=== PATIENT | male | born 1980 | race Caucasian/White ===

== ENCOUNTER 2019-05-03 11:07 | Inpatient (IN) | payer OTHER ==
[2019-05-03 16:16] VITALS: BMI 26.6
--- NOTE | 2019-05-03 18:57 | HP ---
COWS - Scale Resting Pulse: 0= [place] 80 or Below Sweatin= Chills/Flushing Restless Observation: 1= Difficult to Sit Still Pupil Size: 1= Pupils >than Normal Bone or Joint Aches: 2= Severe Diffuse Aches Runny Nose/ Eye Tearin= Runny Nose/Eyes GI Upset > 30mins: 2= Nausea/Diarrhea Tremor Observation: 2= Slight Tremor Visible Yawning Observation: 2= >3x During Session Anxiety or Irritability: 2=Irritable/Anxious Goose Flesh Skin: 0=Smooth Skin COWS Score: 15 CIWA Score - Admission Criteria OASAS Guidelines: Admission for Medically Managed Detox: Requires at least one of the followin. CIWA greater than 12 2. Seizures within the past 24 hours 3. Delirium tremens within the past 24 hours 4. Hallucinations within the past 24 hours 5. Acute intervention needed for co occurring medical disorder 6. Acute intervention needed for co occurring psychiatric disorder 7. Severe withdrawal that cannot be handled at a lower level of care (continued vomiting, continued diarrhea, abnormal vital signs) requiring intravenous medication and/or fluids 8. Admission ROS [facility] - HPI Chief Complaint: i need help to stop using heroin and cocaine Allergies/Adverse Reactions: Allergies Allergy/AdvReac Type Severity Reaction Status Date / Time No Known Allergies Allergy Verified 05/03/19 16:13 History of Present Illness: this 39 years old male with heroin,cocaine dependence,seeking detox,withdrawal symptom, never been in detox before low back pain chronic nicotine dependence 2 cigarette/day weight loss anxiety,depression,insomnia Exam Limitations: No Limitations - Ebola screening Have you traveled outside of the country in the last 21 days: No (N) Have you had contact with anyone from an Ebola affected area: No Do you have a fever: No - Review of Systems Constitutional: Chills, Loss of Appetite, Malaise, Night Sweats, Changes in sleep, Unintentional Wgt. Loss EENT: reports: Tearing, Nose Congestion Respiratory: reports: No Symptoms reported Cardiac: reports: No Symptoms Reported GI: reports: Diarrhea, Nausea, Poor Appetite, Vomiting : reports: No Symptoms Reported Integumentary: reports: Dryness Neuro: reports: Headache, Tremors Endocrine: reports: No Symptoms Reported Hematology: reports: No Symptoms Reported Psychiatric: reports: No Sypmtoms Reported, Judgement Intact, Mood/Affect Appropiate, Orientated x3, Anxious, Depressed, other (insomnia) Other Systems: Reviewed and Negative Patient History - Patient Medical History Hx Anemia: No Hx Asthma: No Hx Chronic Obstructive Pulmonary Disease (COPD): No Hx Cancer: No Hx Cardiac Disorders: No Hx Congestive Heart Failure: No Hx Hypertension: No Hx Hypercholesterolemia: No Hx Pacemaker: No HX Cerebrovascular Accident: No Hx Seizures: No Hx Dementia: No Hx Diabetes: No Hx Gastrointestinal Disorders: No Hx Liver Disease: No Hx Genitourinary Disorders: No Hx Sexually Transmitted Disorders: No Hx Renal Disease (ESRD): No Hx Thyroid Disease: No Hx Human Immunodeficiency Virus (HIV): No (last 2017 negative) Hx Hepatitis C: No Hx Depression: Yes (anxiety,insomnia) Hx Suicide Attempt: No Hx Bipolar Disorder: No Hx Schizophrenia: No Other Medical History: no suicidal,no homicidal, - Patient Surgical History Past Surgical History: No - PPD History Previous Implant?: Yes Documented Results: Negative w/o proof Implanted On Prior [facility] Admission?: No PPD to be Administered?: No - Smoking Cessation Smoking history: Current every day smoker Have you smoked in the past 12 months: Yes Aproximately how many cigarettes per day: 3 Cigars Per Day: 0 Hx Chewing Tobacco Use: No Initiated information on smoking cessation: Yes 'Breaking Loose' booklet given: 05/03/19 - Substance & Tx. History Hx Alcohol Use: No Hx Substance Use: Yes Substance Use Type: Cocaine, Heroin Hx Substance Use Treatment: No - Substances abused Heroin Substance route: Inhalation Frequency: Daily Amount used: 3 bags Age of first use: 25 Date of last use: 05/01/19 Cocaine Substance route: Injection Frequency: 3-6 times per week Amount used: 20$ Age of first use: 10 Date of last use: 05/01/19 Family Disease History - Family Disease History Family History: Denies Admission Physical Exam BHS - Vital Signs Vital Signs: Vital Signs - 24 hr 05/03/19 16:11 Temperature 99 F Pulse Rate 50 L Respiratory 18 Rate Blood Pressure 110/70 - Physical General Appearance: Yes: Moderate Distress, Tremorous, Irritable, Sweating, Anxious HEENTM: Yes: Normal ENT Inspection, LOS, Pharynx Normal Respiratory: Yes: Lungs Clear, Normal Breath Sounds, No Respiratory Distress Neck: Yes: Within Normal Limits, Supple, Trachea in good position Breast: Yes: Within Normal Limits Cardiology: Yes: Within Normal Limits, Regular Rhythm, Regular Rate, S1, S2 Abdominal: Yes: Within Normal Limits, Normal Bowel Sounds, Non Tender, Flat Genitourinary: Yes: Within Normal Limits Back: Yes: Muscle Spasm Musculoskeletal: Yes: Back pain, Muscle Pain Extremities: Yes: Tremors 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: 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: 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 intact, Fully Oriented, Alert, Motor Strength 5/5 Integumentary: Yes: Dry Lymphatic: Yes: Within Normal Limits - Diagnostic (1) Opioid dependence with withdrawal Current Visit: Yes Status: Acute (2) Cocaine dependence Current Visit: Yes Status: Acute (3) Nicotine dependence Current Visit: Yes Status: Acute (4) Chronic low back pain Current Visit: Yes Status: Acute (5) IVDU (intravenous drug user) Current Visit: Yes Status: Acute Cleared for Admission [facility] - Detox or Rehab [facility] Level of Care: Medically Managed Detox Regimen/Protocol: Methadone Breathalyzer - Breathalyzer Breathalyzer: 0 Urine Drug Screen - Test Device Lot number: [id number] Expiration date: 01/28/21 - Control Is test valid?: Yes - Results Drug screen NEGATIVE: No Urine drug screen results: MANUEL-Cocaine, MOP-Opiates Inpatient Rehab Admission - Rehab Decision to Admit Inpatient rehab admission?: No
[2019-05-03] MEDS ORDERED: ACETAMINOPHEN 325 MG TABLET (FP) PO PRN ×2 (19:05)
[2019-05-03] MEDS ORDERED: MAG HYDROX/AL HYDROX/SIMETH 30 ML UNIT-DOSE CUP PO PRN (19:05)
[2019-05-03] MEDS ORDERED: MAGNESIUM HYDROX 2400MG/30ML ORAL SUSPENSION 30 ML CUP PO PRN (19:05)
[2019-05-03] MEDS ORDERED: BISMUTH SUBSALICYLATE 524 MG/30 ML UD PO PRN (19:05)
[2019-05-03] MEDS ORDERED: IBUPROFEN 400 MG TABLET (FP) PO PRN (19:05)
[2019-05-03] MEDS ORDERED: MENTHOL/PHENOL 1 EACH UD MM PRN (19:05)
[2019-05-03] MEDS ORDERED: MELATONIN 5 MG TABLETS PO PRN (19:05)
[2019-05-03] MEDS ORDERED: METHOCARBAMOL 500 MG TABLET PO PRN (19:05)
[2019-05-03] MEDS ORDERED: cloNIDine HCL 0.1 MG TABLET PO PRN (19:05)
[2019-05-03] MEDS ORDERED: MAGNESIUM CITRATE 300 ML BOTTLE PO PRN (19:05)
[2019-05-03] MEDS ORDERED: METHADONE HCL 10 MG TABLET (FOR DETOX USE ONLY) PO ONE (19:05)
[2019-05-03] MEDS ORDERED: hydrOXYzine PAMOATE 25 MG CAPSULE (FP) PO PRN (19:05)
[2019-05-03] MEDS: diazePAM 5 MG TABLET PO PRN (20:01)
[2019-05-03] MEDS: THIAMINE HCL 100 MG TABLET (FP) PO SCH (22:31)
--- NOTE | 2019-05-04 09:17 | EKG ---
Test Reason : Blood Pressure : / mmHG Vent. Rate : 047 BPM Atrial Rate : 047 BPM P-R Int : 164 ms QRS Dur : 088 ms QT Int : 476 ms P-R-T Axes : 044 061 020 degrees QTc Int : 421 ms SINUS BRADYCARDIA OTHERWISE NORMAL ECG NO PREVIOUS ECGS AVAILABLE Confirmed by KARISSA NUÑEZ MD ([id number]) on 05/04/2019 9:17:14 AM Referred By: JOSE BAEZ Confirmed By:KARISSA NUÑEZ MD
[2019-05-04] MEDS ORDERED: METHADONE HCL 5 MG TABLET (FOR DETOX USE ONLY) PO ONE (10:00)
[2019-05-04] MEDS: PRENATAL VITAMINS W/ FOLIC ACID TABLET (FP) PO SCH (10:44)
[2019-05-04 11:36] LABS: HEMATOCRIT 36.4 % (35.4-49); HEMOGLOBIN 11.8 GM/dL (11.7-16.9); MCH 26.1 pg (25.7-33.7); MCHC 32.3 g/dl (32.0-35.9); MEAN CELL VOLUME 80.9 fl (80-96); MEAN PLT VOLUME 8.9 fl (7.5-11.1); PLATELET COUNT 392 K/MM3 (134-434); RDW 14.5 % (11.9-15.9)
[2019-05-04 11:45] LABS: ALBUMIN 3.4 g/dl (3.4-5.0); BILIRUBIN,TOTAL 0.6 mg/dL (0.2-1); CALCIUM 8.7 mg/dL (8.5-10.1); POTASSIUM 4.4 mmol/L (3.5-5.1); TOT PROT 6.7 g/dl (6.4-8.2)
--- NOTE | 2019-05-04 15:12 | CONSULT ---
[facility] Psychiatric Consult - Data Date of interview: 05/04/19 Admission source: [facility] Identifying data: Patient refused psychiatric consultation. Stated he did not ask to see psychiatry. Patient politely refused psychiatric consultation.
--- NOTE | 2019-05-04 15:56 | PN ---
[facility] COWS - Scale Resting Pulse: 0= [place] 80 or Below Sweatin= Chills/Flushing Restless Observation: 3= Extraneous Movement Pupil Size: 0= Normal to Room Light Bone or Joint Aches: 2= Severe Diffuse Aches Runny Nose/ Eye Tearin= Runny Nose/Eyes GI Upset > 30mins: 2= Nausea/Diarrhea Tremor Observation of Outstretched Hands: 2= Slight Tremor Visible Yawning Observation: 0= None Anxiety or Irritability: 2=Irritable/Anxious Goose Flesh Skin: 0=Smooth Skin COWS Score: 14 BHS Progress Note (SOAP) Subjective: Feeling tired, sweating, headache (7/10), interrupted sleep Objective: 05/04/19 15:54 Last Vital Signs Temp Pulse Resp BP Pulse Ox 99.1 F 72 18 125/82 05/04/19 13:36 05/04/19 13:36 05/04/19 13:36 05/04/19 13:36 Laboratory Tests 05/04/19 05/04/19 05/04/19 08:00 08:00 08:00 WBC 5.0 RBC 4.50 Hgb 11.8 Hct 36.4 MCV 80.9 MCH 26.1 MCHC 32.3 RDW 14.5 Plt Count 392 MPV 8.9 Sodium 142 Potassium 4.4 Chloride 105 Carbon Dioxide 30 Anion Gap 7 L BUN 9.0 Creatinine 1.0 Est GFR (CKD-EPI)AfAm 107.87 Est GFR (CKD-EPI)NonAf 93.07 Random Glucose 55 L Calcium 8.7 Total Bilirubin 0.6 AST 40 H ALT 53 Alkaline Phosphatase 81 Total Protein 6.7 Albumin 3.4 RPR Titer Nonreactive HIV 1&2 Antibody Screen HIV P24 Antigen 05/04/19 08:00 WBC RBC Hgb Hct MCV MCH MCHC RDW Plt Count MPV Sodium Potassium Chloride Carbon Dioxide Anion Gap BUN Creatinine Est GFR (CKD-EPI)AfAm Est GFR (CKD-EPI)NonAf Random Glucose Calcium Total Bilirubin AST ALT Alkaline Phosphatase Total Protein Albumin RPR Titer HIV 1&2 Antibody Screen Cancelled HIV P24 Antigen Cancelled Labs reviewed Assessment: 05/04/19 15:55 Withdrawal symptoms Plan: Continue detox Encouraged PO water intake
[2019-05-04] MEDS: THIAMINE HCL 100 MG TABLET (FP) PO SCH (22:36)
[2019-05-04] MEDS: diazePAM 5 MG TABLET PO PRN (22:37)
[2019-05-05] MEDS ORDERED: METHADONE HCL 10 MG TABLET (FOR DETOX USE ONLY) PO ONE (10:00)
[2019-05-05] MEDS: PRENATAL VITAMINS W/ FOLIC ACID TABLET (FP) PO SCH (10:40)
[2019-05-05 10:55] LABS: PH,URINE 8.5 (5.0-8.0); URINE APPEARANCE CLEAR; URINE BILIRUBIN NEGATIVE (NEGATIVE); URINE COLOR YELLOW; URINE GLUCOSE (UA) NEGATIVE (NEGATIVE); URINE KETONE NEGATIVE (NEGATIVE); URINE LEUK ESTERASE NEGATIVE (NEGATIVE); URINE NITRITE NEGATIVE (NEGATIVE); URINE PROTEIN NEGATIVE (NEGATIVE); URINE UROBILINOGEN 0.2 mg/dL (0.2-1.0)
--- NOTE | 2019-05-05 15:02 | PN ---
BHS COWS - Scale Resting Pulse: 0= [place] 80 or Below Sweatin= No chills or Flushing Restless Observation: 1= Difficult to Sit Still Pupil Size: 0= Normal to Room Light Bone or Joint Aches: 0= None Runny Nose/ Eye Tearin= None GI Upset > 30mins: 0= None Tremor Observation of Outstretched Hands: 0= None Yawning Observation: 1= 1-2x During Session Anxiety or Irritability: 2=Irritable/Anxious Goose Flesh Skin: 0=Smooth Skin COWS Score: 4 BHS Progress Note (SOAP) Subjective: Fatigue. Objective: PATIENT A & O X 2 (UNCERTAIN ABOUT CURRENT DAY / DATE). PATIENT OBSERVED AMBULATING ON UNIT UNASSISTED. IN NO ACUTE DISTRESS. 05/05/19 15:00 Vital Signs Temperature 98.1 F 05/05/19 13:09 Pulse Rate 69 05/05/19 13:09 Respiratory Rate 18 05/05/19 13:09 Blood Pressure 137/82 05/05/19 13:09 O2 Sat by Pulse Oximetry (%) Laboratory Tests 05/04/19 05/04/19 05/04/19 08:00 08:00 08:00 WBC 5.0 RBC 4.50 Hgb 11.8 Hct 36.4 MCV 80.9 MCH 26.1 MCHC 32.3 RDW 14.5 Plt Count 392 MPV 8.9 Sodium 142 Potassium 4.4 Chloride 105 Carbon Dioxide 30 Anion Gap 7 L BUN 9.0 Creatinine 1.0 Est GFR (CKD-EPI)AfAm 107.87 Est GFR (CKD-EPI)NonAf 93.07 Random Glucose 55 L Calcium 8.7 Total Bilirubin 0.6 AST 40 H ALT 53 Alkaline Phosphatase 81 Total Protein 6.7 Albumin 3.4 Urine Color Urine Appearance Urine pH Ur Specific [place] Urine Protein Urine Glucose (UA) Urine Ketones Urine Blood Urine Nitrite Urine Bilirubin Urine Urobilinogen Ur Leukocyte Esterase RPR Titer Nonreactive HIV 1&2 Ag/Ab, 4th Gen HIV 1&2 Antibody Screen HIV P24 Antigen 05/04/19 05/04/19 05/05/19 08:00 10:00 08:25 WBC RBC Hgb Hct MCV MCH MCHC RDW Plt Count MPV Sodium Potassium Chloride Carbon Dioxide Anion Gap BUN Creatinine Est GFR (CKD-EPI)AfAm Est GFR (CKD-EPI)NonAf Random Glucose Calcium Total Bilirubin AST ALT Alkaline Phosphatase Total Protein Albumin Urine Color Yellow Urine Appearance Clear Urine pH 8.5 H Ur Specific [place] 1.012 Urine Protein Negative Urine Glucose (UA) Negative Urine Ketones Negative Urine Blood Negative Urine Nitrite Negative Urine Bilirubin Negative Urine Urobilinogen 0.2 Ur Leukocyte Esterase Negative RPR Titer HIV 1&2 Ag/Ab, 4th Gen Non reactive HIV 1&2 Antibody Screen Cancelled HIV P24 Antigen Cancelled LABS NOTED. RESULTS OF DETOX ADMISSION QFT /TB TEST PENDING. 05/05/19 15:01 Assessment: 05/05/19 15:01 WITHDRAWAL SYMPTOMS. Plan: CONTINUE DETOX. PATIENT SCHEDULED FOR D/C FROM DETOX UNIT TOMORROW.
[2019-05-05] MEDS: THIAMINE HCL 100 MG TABLET (FP) PO SCH (22:34)
[2019-05-05] MEDS: diazePAM 5 MG TABLET PO PRN (22:34)
[2019-05-06] MEDS ORDERED: METHADONE HCL 5 MG TABLET (FOR DETOX USE ONLY) PO ONE (06:00)
--- NOTE | 2019-05-06 08:45 | DS ---
[facility] Detox Discharge Summary Admission Date: 05/03/19 Discharge Date: 05/06/19 - History Present History: Cocaine Dependence, Opioid Dependence - Physical Exam Results Vital Signs: Vital Signs Temperature 97.2 F L 05/06/19 06:53 Pulse Rate 70 05/06/19 06:53 Respiratory Rate 20 05/06/19 06:53 Blood Pressure 100/55 L 05/06/19 06:53 O2 Sat by Pulse Oximetry (%) Pertinent Admission Physical Exam Findings: pt arrived in withdrawals Laboratory Tests 05/04/19 05/04/19 05/04/19 08:00 08:00 08:00 WBC 5.0 RBC 4.50 Hgb 11.8 Hct 36.4 MCV 80.9 MCH 26.1 MCHC 32.3 RDW 14.5 Plt Count 392 MPV 8.9 Sodium 142 Potassium 4.4 Chloride 105 Carbon Dioxide 30 Anion Gap 7 L BUN 9.0 Creatinine 1.0 Est GFR (CKD-EPI)AfAm 107.87 Est GFR (CKD-EPI)NonAf 93.07 Random Glucose 55 L Calcium 8.7 Total Bilirubin 0.6 AST 40 H ALT 53 Alkaline Phosphatase 81 Total Protein 6.7 Albumin 3.4 Urine Color Urine Appearance Urine pH Ur Specific [place] Urine Protein Urine Glucose (UA) Urine Ketones Urine Blood Urine Nitrite Urine Bilirubin Urine Urobilinogen Ur Leukocyte Esterase RPR Titer Nonreactive HIV 1&2 Ag/Ab, 4th Gen HIV 1&2 Antibody Screen HIV P24 Antigen 05/04/19 05/04/19 05/05/19 08:00 10:00 08:25 WBC RBC Hgb Hct MCV MCH MCHC RDW Plt Count MPV Sodium Potassium Chloride Carbon Dioxide Anion Gap BUN Creatinine Est GFR (CKD-EPI)AfAm Est GFR (CKD-EPI)NonAf Random Glucose Calcium Total Bilirubin AST ALT Alkaline Phosphatase Total Protein Albumin Urine Color Yellow Urine Appearance Clear Urine pH 8.5 H Ur Specific [place] 1.012 Urine Protein Negative Urine Glucose (UA) Negative Urine Ketones Negative Urine Blood Negative Urine Nitrite Negative Urine Bilirubin Negative Urine Urobilinogen 0.2 Ur Leukocyte Esterase Negative RPR Titer HIV 1&2 Ag/Ab, 4th Gen Non reactive HIV 1&2 Antibody Screen Cancelled HIV P24 Antigen Cancelled today pt is aaox3 ambulating no acute distress no s/s of withdrawal sx - Treatment Hospital Course: Detox Protocol Followed, Detoxed Safely, Responded well, Discharged Condition Good, Rehab Referral Accepted Patient has Accepted a Rehab Referral to: referred to rehab - Medication Discharge Medications: Ambulatory Orders NK [No Known Home Medication] 05/03/19 - Diagnosis (1) Chronic low back pain Current Visit: Yes Status: Chronic Qualifiers: Back pain laterality: unspecified (2) Cocaine dependence Current Visit: Yes Status: Chronic Qualifiers: Substance use status: uncomplicated Qualified Code(s): F14.20 - Cocaine dependence, uncomplicated (3) IVDU (intravenous drug user) Current Visit: Yes Status: Chronic (4) Nicotine dependence Current Visit: Yes Status: Chronic Qualifiers: Nicotine product type: cigarettes Substance use status: uncomplicated Qualified Code(s): F17.210 - Nicotine dependence, cigarettes, uncomplicated (5) Opioid dependence with withdrawal Current Visit: Yes Status: Chronic - AMA Did Patient Leave Against Medical Advice: No
[2019-05-06] MEDS: PRENATAL VITAMINS W/ FOLIC ACID TABLET (FP) PO SCH (11:22)
[2019-05-06 13:29] VITALS: BP 136/85; PULSE 70; TEMP 97.2
== END 2019-05-06 13:00 | disposition other institution (70) | DRG 773 ==
LOC: YASAS 11:07 → Y6N 19:19
PROVIDERS: ADMIT Surgery; ATTEND Surgery
PROC: HZ2ZZZZ Detoxification Services for Substance Abuse Treatment (ICD-10-PCS; principal; 2019-05-03)
DX: F11.23 Opioid dependence with withdrawal (principal); F14.20 Cocaine dependence, uncomplicated; F17.210 Nicotine dependence, cigarettes, uncomplicated; M54.5 Low back pain; G89.29 Other chronic pain
CPT/HCPCS: 36415; 80053; 81003; 85027; 86480; 86593; 87389; 93005; 93010

== ENCOUNTER 2019-05-06 13:11 | Inpatient (IN) | payer OTHER ==
[2019-05-06] MEDS ORDERED: IBUPROFEN 400 MG TABLET (FP) PO PRN (13:48)
[2019-05-06] MEDS ORDERED: guaiFENesin 200 MG/10 ML 10 ML UNIT-DOSE CUPS PO PRN (13:48)
[2019-05-06] MEDS ORDERED: MAG HYDROX/AL HYDROX/SIMETH 30 ML UNIT-DOSE CUP PO PRN (13:48)
[2019-05-06] MEDS ORDERED: LOPERAMIDE HCL 2 MG CAPSULE PO PRN (13:48)
[2019-05-06] MEDS ORDERED: P-EPHED 60MG/TRIPROLIDI 2.5MG TABLET PO PRN (13:48)
[2019-05-06] MEDS ORDERED: NICOTINE POLACRILEX 4 MG GUM BUC PRN (13:48)
[2019-05-06] MEDS ORDERED: hydrOXYzine PAMOATE 50 MG CAPSULE (FP) PO PRN (13:48)
[2019-05-06] MEDS ORDERED: MENTHOL/PHENOL 1 EACH UD MM PRN (13:48)
[2019-05-06] MEDS ORDERED: MAGNESIUM HYDROX 2400MG/30ML ORAL SUSPENSION 30 ML CUP PO PRN (13:48)
[2019-05-06] MEDS ORDERED: MAGNESIUM CITRATE 300 ML BOTTLE PO PRN (13:48)
--- NOTE | 2019-05-06 13:48 | HP ---
[facility] Rehab Assess/Revision - Admission History Admitted to Rehab from: [facility] - Findings Detox History & Physical reviewed: Yes Concur with findings: Yes Inpatient Rehab Admission - Rehab Decision to Admit Inpatient rehab admission?: Yes - Initial Determination Are CD services needed?: Yes Free of communicable disease: Yes Not in need of hospitalization: Yes - Rehab Admission Criteria Previous failed treatment: Yes Poor recovery environment: Yes Comorbidities: Yes Lacks judgement: Yes Patient is meeting Inpatient Rehab admission criteria:: Yes
[2019-05-06] MEDS: THIAMINE HCL 100 MG TABLET (FP) PO SCH (21:59)
[2019-05-07] MEDS: NICOTINE 21 MG/24 HOURS TOPICAL PATCH TD SCH (10:19)
[2019-05-07] MEDS: PRENATAL VITAMINS W/ FOLIC ACID TABLET (FP) PO SCH (10:19)
[2019-05-07] MEDS: MELATONIN 5 MG TABLETS PO PRN (21:24)
[2019-05-07] MEDS: THIAMINE HCL 100 MG TABLET (FP) PO SCH (21:24)
[2019-05-08] MEDS: NICOTINE 21 MG/24 HOURS TOPICAL PATCH TD SCH (09:55)
[2019-05-08] MEDS: METHOCARBAMOL 500 MG TABLET PO PRN (09:55)
[2019-05-08] MEDS: PRENATAL VITAMINS W/ FOLIC ACID TABLET (FP) PO SCH (09:56)
[2019-05-08] MEDS: LIDOCAINE 5% TOPICAL PATCH TP SCH (15:38)
[2019-05-08] MEDS: MELATONIN 5 MG TABLETS PO PRN (21:21)
[2019-05-08] MEDS: THIAMINE HCL 100 MG TABLET (FP) PO SCH (21:21)
[2019-05-08] MEDS: LIDOCAINE PATCH REMOVAL MC SCH (23:26)
[2019-05-09] MEDS: PRENATAL VITAMINS W/ FOLIC ACID TABLET (FP) PO SCH (10:15)
[2019-05-09] MEDS: NICOTINE 21 MG/24 HOURS TOPICAL PATCH TD SCH (10:15)
[2019-05-09] MEDS: LIDOCAINE 5% TOPICAL PATCH TP SCH (10:15)
[2019-05-09] MEDS: METHOCARBAMOL 500 MG TABLET PO PRN (15:44)
[2019-05-09] MEDS: THIAMINE HCL 100 MG TABLET (FP) PO SCH (21:35)
[2019-05-09] MEDS: LIDOCAINE PATCH REMOVAL MC SCH (21:35)
[2019-05-10] MEDS: LIDOCAINE 5% TOPICAL PATCH TP SCH (09:55)
[2019-05-10] MEDS: PRENATAL VITAMINS W/ FOLIC ACID TABLET (FP) PO SCH (09:56)
[2019-05-10] MEDS: NICOTINE 21 MG/24 HOURS TOPICAL PATCH TD SCH (09:56)
[2019-05-10] MEDS: THIAMINE HCL 100 MG TABLET (FP) PO SCH (21:59)
[2019-05-10] MEDS: LIDOCAINE PATCH REMOVAL MC SCH (21:59)
[2019-05-10] MEDS: METHOCARBAMOL 500 MG TABLET PO PRN (22:00)
[2019-05-11] MEDS: LIDOCAINE 5% TOPICAL PATCH TP SCH (09:41)
[2019-05-11] MEDS: NICOTINE 21 MG/24 HOURS TOPICAL PATCH TD SCH (09:41)
[2019-05-11] MEDS: PRENATAL VITAMINS W/ FOLIC ACID TABLET (FP) PO SCH (09:41)
[2019-05-11] MEDS: MELATONIN 5 MG TABLETS PO PRN (21:15)
[2019-05-11] MEDS: LIDOCAINE PATCH REMOVAL MC SCH (21:15)
[2019-05-11] MEDS: THIAMINE HCL 100 MG TABLET (FP) PO SCH (21:15)
[2019-05-12] MEDS ORDERED: PT OWN MED DRAWER 7, Y5N ONE (06:44)
[2019-05-12] MEDS: LIDOCAINE 5% TOPICAL PATCH TP SCH (09:46)
[2019-05-12] MEDS: NICOTINE 21 MG/24 HOURS TOPICAL PATCH TD SCH (09:46)
[2019-05-12] MEDS: PRENATAL VITAMINS W/ FOLIC ACID TABLET (FP) PO SCH (09:46)
--- NOTE | 2019-05-12 10:38 | PN ---
[facility] Progress Note Note: PATIENT SEEN FOR C/O INSOMNIA, FACIAL RASH AND TO DISCUSS VIVITROL MAT FOR OPIOD USE DISORDER. PATIENT ON PAROLE AND HAS LONG STANDING HX OF HEROIN USE. STATES HE WANTED TO KNOW MORE ABOUT VIVITROL. PATIENT ALSO STATES HAVING DIFFICULTY FALLING ASLEEP WOULD LIKE TREATMENT. Vital Signs Temperature 98.8 F 05/12/19 07:24 Pulse Rate 73 05/12/19 07:24 Respiratory Rate 18 05/12/19 07:24 Blood Pressure 122/83 05/12/19 07:24 O2 Sat by Pulse Oximetry (%) Vital Signs (72 hours) 05/10/19 05/10/19 05/10/19 00:30 03:30 07:04 Temperature 97.4 F L Pulse Rate 72 Respiratory 18 18 18 Rate Blood Pressure 121/89 05/11/19 05/11/19 05/11/19 00:30 03:30 06:44 Temperature 98.3 F Pulse Rate 82 Respiratory 18 18 18 Rate Blood Pressure 129/73 05/12/19 05/12/19 05/12/19 00:30 03:30 07:24 Temperature 98.8 F Pulse Rate 73 Respiratory 18 18 18 Rate Blood Pressure 122/83 Laboratory Tests 05/07/19 08:30 Hep C Ab Diagnostic <0.1 PE: ALERT AND ORIENTED X 3 SKIN WARM AND DRY, + MACULAR RED RASH ON CHEEKS +PERRLA, EOM INTACT BL NECK SUPPLE, NO JVD EXT FULL ROM, AMB AD JOSE ELIAS A/P: INSOMNIA FACIAL RASH OPIOD USE DISORDER WILL START TRAZODONE 50MG HS FOR INSOMNIA HYDROCORTISONE 1% FOR RASH DAILY X 7 DAYS DISCUSSED USE, DOSE, SIDE EFFECTS AND POLICY AND PROTOCOL OF VIVITROL-PATIENT DECLINED TREATMENT AT THIS TIME MONITOR CLINICALLY
[2019-05-12] MEDS: HYDROCORTISONE 1% TOPICAL CREAM 30 GM TUBE TP SCH (13:56)
[2019-05-12] MEDS: AMMONIUM LACTATE 12% LOTION 225 GM BOTTLE TP PRN (16:47)
[2019-05-12] MEDS: LIDOCAINE PATCH REMOVAL MC SCH (21:48)
[2019-05-12] MEDS: THIAMINE HCL 100 MG TABLET (FP) PO SCH (21:49)
[2019-05-12] MEDS ORDERED: traZODone HCL 50 MG TABLET (FP) PO SCH (22:00)
[2019-05-13] MEDS: PRENATAL VITAMINS W/ FOLIC ACID TABLET (FP) PO SCH (09:42)
[2019-05-13] MEDS: LIDOCAINE 5% TOPICAL PATCH TP SCH (09:42)
[2019-05-13] MEDS: METHOCARBAMOL 500 MG TABLET PO PRN (09:42)
[2019-05-13] MEDS: NICOTINE 21 MG/24 HOURS TOPICAL PATCH TD SCH (09:44)
[2019-05-13] MEDS: HYDROCORTISONE 1% TOPICAL CREAM 30 GM TUBE TP SCH (09:44)
[2019-05-13] MEDS ORDERED: traZODone HCL 50 MG TABLET (FP) PO SCH (10:21)
--- NOTE | 2019-05-13 10:30 | PN ---
[facility] Progress Note Note: Pt states still having difficulty sleeping. Tried Trazodone 50mg last night not helping. Has hot and cold sweats at night. Thinking about Suboxone for OUD rx: plan: For sleeping d/c nicotine patch d/c lidocaine patch at 6pm- lidocaine has side effect of LIAISON OFFICER excitation Increase Trazodone to 100mg qhs For OUD: Consider Bupe for Tx, pt will talk to counselor f/u with me tomorrow
[2019-05-13] MEDS: AMMONIUM LACTATE 12% LOTION 225 GM BOTTLE TP PRN (15:55)
[2019-05-13] MEDS ORDERED: PT OWN MED DRAWER 7, Y5N ONE (15:55)
[2019-05-13] MEDS: LIDOCAINE PATCH REMOVAL MC SCH (21:24)
[2019-05-13] MEDS: THIAMINE HCL 100 MG TABLET (FP) PO SCH (21:24)
[2019-05-14] MEDS: METHOCARBAMOL 500 MG TABLET PO PRN (09:49)
[2019-05-14] MEDS: PRENATAL VITAMINS W/ FOLIC ACID TABLET (FP) PO SCH (09:49)
[2019-05-14] MEDS: HYDROCORTISONE 1% TOPICAL CREAM 30 GM TUBE TP SCH (09:50)
--- NOTE | 2019-05-14 10:06 | PN ---
S Progress Note Note: Pt states the trazodone that was increased to 100mg for insomnia did not help his sleep. c/o feeling restless and hot and cold sweats. Pt spoke to counselor about getting an appointment with an outpt program. Trazodone d/c'd
[2019-05-14] MEDS ORDERED: BUPRENORPHINE/NALOXONE 8 MG/2 MG FILM PACKET SL ONE (10:15)
[2019-05-14] MEDS ORDERED: PT OWN MED DRAWER 7, Y5N ONE (13:20)
--- NOTE | 2019-05-14 15:51 | PN ---
S Progress Note Note: pt states got first dose of suboxone this morning- says taste was funny, but now feels better, feels alive.
[2019-05-14] MEDS: THIAMINE HCL 100 MG TABLET (FP) PO SCH (21:21)
[2019-05-14] MEDS: LIDOCAINE PATCH REMOVAL MC SCH (21:21)
[2019-05-14] MEDS: BUPRENORPHINE/NALOXONE 8 MG/2 MG FILM PACKET SL SCH (21:21)
[2019-05-15] MEDS: PRENATAL VITAMINS W/ FOLIC ACID TABLET (FP) PO SCH (09:28)
[2019-05-15] MEDS: BUPRENORPHINE/NALOXONE 8 MG/2 MG FILM PACKET SL SCH ×2 (09:29→19:54)
[2019-05-15] MEDS: LIDOCAINE 5% TOPICAL PATCH TP PRN (09:30)
[2019-05-15] MEDS: HYDROCORTISONE 1% TOPICAL CREAM 30 GM TUBE TP SCH (09:31)
[2019-05-15] MEDS: ACETAMINOPHEN 325 MG TABLET (FP) PO PRN (19:11)
[2019-05-15] MEDS: THIAMINE HCL 100 MG TABLET (FP) PO SCH (21:29)
[2019-05-15] MEDS: LIDOCAINE PATCH REMOVAL MC SCH (21:29)
[2019-05-16] MEDS: ACETAMINOPHEN 325 MG TABLET (FP) PO PRN (02:10)
--- NOTE | 2019-05-16 09:51 | PN ---
S Progress Note Note: Patient states he feels tired but cannot fall asleep. Suboxone dose adjusted to be given at 8pm instead of 10pm. Patient was treated with Trazodone and Melatonin but medication ineffective. Patient would like to discuss seroquel as an option with psychiatrist. Vital Signs Temperature 98.4 F 05/16/19 06:30 Pulse Rate 98 H 05/16/19 06:30 Respiratory Rate 18 05/16/19 06:30 Blood Pressure 119/70 05/16/19 06:30 O2 Sat by Pulse Oximetry (%) Laboratory Tests 05/07/19 08:30 Hep C Ab Diagnostic <0.1 PE: alert and oriented x 3 skin warm and dry, no sweating, color good +perrla, eoms intact bl ext full rom, amb ad robert no tremors A/P: insomnia Psych consult ordered Monitor clinically
[2019-05-16] MEDS: BUPRENORPHINE/NALOXONE 8 MG/2 MG FILM PACKET SL SCH ×2 (09:59→20:04)
[2019-05-16] MEDS: METHOCARBAMOL 500 MG TABLET PO PRN (09:59)
[2019-05-16] MEDS: PRENATAL VITAMINS W/ FOLIC ACID TABLET (FP) PO SCH (09:59)
[2019-05-16] MEDS: LIDOCAINE 5% TOPICAL PATCH TP PRN (10:01)
[2019-05-16] MEDS: HYDROCORTISONE 1% TOPICAL CREAM 30 GM TUBE TP SCH (10:02)
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
[2019-05-16] MEDS: MIRTAZAPINE 15 MG TABLET (FP) PO SCH (21:13)
[2019-05-16] MEDS: THIAMINE HCL 100 MG TABLET (FP) PO SCH (21:14)
[2019-05-16] MEDS: LIDOCAINE PATCH REMOVAL MC SCH (21:14)
[2019-05-17] MEDS: LIDOCAINE 5% TOPICAL PATCH TP PRN (10:23)
[2019-05-17] MEDS: BUPRENORPHINE/NALOXONE 8 MG/2 MG FILM PACKET SL SCH ×2 (10:23→21:24)
[2019-05-17] MEDS: PRENATAL VITAMINS W/ FOLIC ACID TABLET (FP) PO SCH (10:23)
[2019-05-17] MEDS: HYDROCORTISONE 1% TOPICAL CREAM 30 GM TUBE TP SCH (10:44)
[2019-05-17] MEDS ORDERED: PT OWN MED DRAWER 7, Y5N ONE (15:48)
[2019-05-17] MEDS: LIDOCAINE PATCH REMOVAL MC SCH (21:24)
[2019-05-17] MEDS: THIAMINE HCL 100 MG TABLET (FP) PO SCH (21:24)
[2019-05-17] MEDS: MIRTAZAPINE 15 MG TABLET (FP) PO SCH (21:24)
[2019-05-18] MEDS: BUPRENORPHINE/NALOXONE 8 MG/2 MG FILM PACKET SL SCH ×2 (10:07→20:10)
[2019-05-18] MEDS: PRENATAL VITAMINS W/ FOLIC ACID TABLET (FP) PO SCH (10:07)
[2019-05-18] MEDS: HYDROCORTISONE 1% TOPICAL CREAM 30 GM TUBE TP SCH (10:08)
[2019-05-18] MEDS: AMMONIUM LACTATE 12% LOTION 225 GM BOTTLE TP PRN (10:08)
[2019-05-18] MEDS ORDERED: PT OWN MED DRAWER 7, Y5N ONE (10:10)
[2019-05-18] MEDS: MIRTAZAPINE 15 MG TABLET (FP) PO SCH (21:44)
[2019-05-18] MEDS: THIAMINE HCL 100 MG TABLET (FP) PO SCH (21:44)
[2019-05-18] MEDS: LIDOCAINE PATCH REMOVAL MC SCH (22:08)
[2019-05-19] MEDS: BUPRENORPHINE/NALOXONE 8 MG/2 MG FILM PACKET SL SCH ×2 (10:28→20:35)
[2019-05-19] MEDS: PRENATAL VITAMINS W/ FOLIC ACID TABLET (FP) PO SCH (10:28)
[2019-05-19] MEDS: AMMONIUM LACTATE 12% LOTION 225 GM BOTTLE TP PRN (10:29)
[2019-05-19] MEDS: HYDROCORTISONE 1% TOPICAL CREAM 30 GM TUBE TP SCH (10:30)
--- NOTE | 2019-05-19 14:05 | PN ---
S Progress Note Note: REHAB DISCHARGE NOTE: PATIENT ADMITTED TO DETOX ON 05/03/19 -05/06/19 FOR OPIOD DEPENDENCE. PATIENT COMPLETED DETOX AND ADMITTED TO REHAB ON 05/06/19 AND IS SCHEDULED FOR DISCHARGE ON 05/20/19. AFTERCARE IS ARRANGED FOR [facility] AND PATIENT TO CALL AND SCHEDULE VISIT TOMORROW UPON DISCHARGE. PATIENT WAS STARTED ON SUBOXONE MAT FOR OPIOD DEPENDENCE AND HAS TOLERATED MEDICATION WELL. PATIENT STATES HE ACCOMPLISHED ALL REHAB GOALS AND DENIES ANY SI/HI. ROS DENIES H/A, CP, SOB AND DIZZINESS Laboratory Tests 05/07/19 08:30 Hep C Ab Diagnostic <0.1 Ambulatory Orders Buprenorphine/Naloxone [Suboxone 8Mg/2Mg Sl Film -] 1 each SL BID #14 packet MDD 16mg 05/19/19 Vital Signs (72 hours) 05/17/19 05/17/19 05/17/19 00:30 03:30 06:48 Temperature 98.4 F Pulse Rate 70 Respiratory 18 20 18 Rate Blood Pressure 117/78 05/18/19 05/18/19 05/18/19 00:30 03:30 06:26 Temperature 98.6 F Pulse Rate 66 Respiratory 18 18 18 Rate Blood Pressure 120/65 05/19/19 05/19/19 05/19/19 00:30 03:30 06:00 Temperature 98.4 F Pulse Rate 76 Respiratory 18 18 18 Rate Blood Pressure 107/65 PE: ALERT AND ORIENTED X 3 SKIN WARM AND DRY +PERRLA, EOMS INTACT BL NECK SUPPLE, NO JVD CAR S1S2 RESP CTA BL EXT FULL ROM, AMB AD JOSE ELIAS A/P: OPIOD DEPENDENCE SUBOXONE MAT PATIENT STABLE FOR D/C ENCOURAGED TO FOLLOW UP WITH [facility] AND PCP WITHIN 72 HOURS
[2019-05-19] MEDS: LIDOCAINE 5% TOPICAL PATCH TP PRN (14:09)
--- NOTE | 2019-05-19 14:59 | PN ---
[facility] Progress Note Note: Patient complains about sleeping poorly on Remeron 15 mg/hs. Requests that medication dosage be increased to 30 mg/hs
--- NOTE | 2019-05-19 15:02 | PN ---
S Progress Note Note: Patient is scheduled for discharge tomorrow. Script for 30 days supply of Remeron 30 mg/hs is electronically transmitted to [facility] at [address] [place], [place] [id number]
[2019-05-19] MEDS: LIDOCAINE PATCH REMOVAL MC SCH (21:32)
[2019-05-19] MEDS: THIAMINE HCL 100 MG TABLET (FP) PO SCH (21:33)
[2019-05-19] MEDS ORDERED: MIRTAZAPINE 30 MG TABLET (FP) PO SCH (22:00)
[2019-05-20 07:01] VITALS: BP 111/81; PULSE 64; TEMP 98.7
[2019-05-20] MEDS: PRENATAL VITAMINS W/ FOLIC ACID TABLET (FP) PO SCH (09:00)
[2019-05-20] MEDS: LIDOCAINE 5% TOPICAL PATCH TP PRN (09:00)
[2019-05-20] MEDS: BUPRENORPHINE/NALOXONE 8 MG/2 MG FILM PACKET SL SCH (09:05)
== END 2019-05-20 09:00 | disposition home or self-care (01) | DRG 772 ==
LOC: YASAS 13:11 → Y3W 13:12
PROVIDERS: ADMIT Neuromusculoskeletal Medicine & OMM; ATTEND Neuromusculoskeletal Medicine & OMM
PROC: HZ42ZZZ Group Counseling for Substance Abuse Treatment, Cognitive-Behavioral (ICD-10-PCS; principal; 2019-05-06)
DX: F11.20 Opioid dependence, uncomplicated (principal); F14.20 Cocaine dependence, uncomplicated; F17.210 Nicotine dependence, cigarettes, uncomplicated; F41.9 Anxiety disorder, unspecified; F43.10 Post-traumatic stress disorder, unspecified; F19.282 Other psychoactive substance dependence with psychoactive substance-induced sleep disorder; F19.280 Other psychoactive substance dependence with psychoactive substance-induced anxiety disorder; M54.5 Low back pain; G89.29 Other chronic pain; R21 Rash and other nonspecific skin eruption
CPT/HCPCS: 36415; 86803

== ENCOUNTER 2019-08-26 18:31 | Emergency (ER) | payer OTHER ==
[2019-08-26 19:01] VITALS: BMI 27.2
[2019-08-26] MEDS ORDERED: LORazepam 2 MG/ML SDV VIAL ONE (19:06)
--- NOTE | 2019-08-26 20:08 | PDOC ---
Attending Attestation - Resident Resident Name: Kingston Mcdaniels - ED Attending Attestation I have performed the following: I have examined & evaluated the patient, The case was reviewed & discussed with the resident, I agree w/resident's findings & plan - HPI HPI: 08/26/19 20:07 see resident hpi - Physicial Exam PE: 08/26/19 20:07 agree with resident exam - Medical Decision Making 08/26/19 20:07 39-year-old male with history of substance abuse with acute agitation Plan for labs including drug screen and CPK Ativan as needed agitation We will attempt to clear for detox, medical admission if necessary
--- NOTE | 2019-08-26 20:26 | PDOC ---
History of Present Illness - General Chief Complaint: Substance Abuse Stated Complaint: EDP Time Seen by Provider: 08/26/19 19:41 History Source: Patient Exam Limitations: No Limitations - History of Present Illness Initial Comments: 08/26/19 20:24 39M with a PMH of depression, anxiety, and polysubstance abuse (heroine and cocaine) who presents to the ER from our detox facility for evaluation. Pt states he has a sore throat. Denies CP, SOB, SI, HI, nausea, vomiting, abd pain. Refuses to provide other history as "I have talked to enough people today , ask them". Past History - Past Medical History Allergies/Adverse Reactions: Allergies Allergy/AdvReac Type Severity Reaction Status Date / Time No Known Allergies Allergy Verified 05/03/19 16:13 Home Medications: Ambulatory Orders Buprenorphine/Naloxone [Suboxone 8Mg/2Mg Sl Film -] 1 each SL BID #14 packet MDD 16mg 05/19/19 Mirtazapine [Remeron -] 30 mg PO HS #30 tablet 05/19/19 Anemia: No Asthma: No Cancer: No Cardiac Disorders: No CVA: No COPD: No CHF: No Dementia: No Diabetes: No GI Disorders: No Disorders: No HTN: No Hypercholesterolemia: No Kidney Stones: No Liver Disease: No Seizures: No Thyroid Disease: No - Surgical History Abdominal Surgery: No Appendectomy: No Cardiac Surgery: No Cholecystectomy: No Lung Surgery: No Neurologic Surgery: No Orthopedic Surgery: No - Reproductive History Testicular Surgery: No - Psycho Social/Smoking Cessation Hx Smoking History: Current every day smoker Have you smoked in the past 12 months: Yes Number of Cigarettes Smoked Daily: 5 Cigars Per Day: 0 Information on smoking cessation initiated: Yes 'Breaking Loose' booklet given: 05/03/19 Hx Alcohol Use: Yes Drug/Substance Use Hx: Yes Substance Use Type: Cocaine, Heroin Hx Substance Use Treatment: No Review of Systems - Review of Systems Able to Perform ROS?: Yes Comments:: 08/26/19 21:22 GENERAL/CONSTITUTIONAL: No fever or chills. No weakness. HEAD, EYES, EARS, NOSE AND THROAT: + for sore throat. No change in vision. No ear pain or discharge. CARDIOVASCULAR: No chest pain, palpitations, or lightheadedness. RESPIRATORY: No cough, wheezing, shortness of breath, or hemoptysis. GASTROINTESTINAL: No abdominal pain, nausea, vomiting, diarrhea, or constipation. GENITOURINARY: No dysuria, frequency, hematuria, or change in urination. MUSCULOSKELETAL: No joint or muscle swelling or pain. No neck or back pain. SKIN: No rash or lesions. NEUROLOGIC: No headache, numbness, tingling, focal weakness, loss of consciousness, or change in strength/sensation. Is the patient limited Norwegian proficient: No *Physical Exam - Vital Signs Last Vital Signs Temp Pulse Resp BP Pulse Ox 98.3 F 88 18 124/105 H 99 08/26/19 18:35 08/26/19 18:35 08/26/19 18:35 08/26/19 18:35 08/26/19 19:02 - Physical Exam Comments: 08/26/19 21:23 GENERAL: Well developed, well nourished. Awake and alert. Irritable. HEENT: Normocephalic, atraumatic. Hearing grossly normal. Moist mucous membranes. PERRLA, EOMI. No conjunctival pallor. Sclera are non-icteric. NECK: Supple. Full ROM. No JVD. CARDIOVASCULAR: Regular rate and rhythm. No murmurs, rubs, or gallops. PULMONARY: No evidence of respiratory distress. Lungs clear to auscultation bilaterally. No wheezing, rales or rhonchi. ABDOMINAL: Soft. Non-tender. Non-distended. No rebound or guarding. GENITOURINARY: No CVA tenderness bilaterally. MUSCULOSKELETAL: Normal range of motion at all joints. No bony deformities or tenderness. EXTREMITIES: No cyanosis. No clubbing. No edema. No calf tenderness or swelling. SKIN: Injection rodriguez on b/l AC's. Warm and dry. Normal capillary refill. No rashes. No jaundice. NEUROLOGICAL: Alert, awake, appropriate. Cranial nerves 2-12 grossly intact. Normal speech. Gait is normal without ataxia. PSYCHIATRIC: Cooperative. Good eye contact. Irritable. ED Treatment Course - LABORATORY CBC & Chemistry Diagram: 08/26/19 21:58 08/26/19 21:58 - Medications Given in the ED: ED Medications Discontinued Medications Generic Name Dose Route Start Last Admin Trade Name Freq PRN Reason Stop Dose Admin Lorazepam 1 mg 08/26/19 18:52 08/26/19 19:05 Ativan Injection - IM 08/26/19 18:53 1 mg ONCE ONE Administration Medical Decision Making - Medical Decision Making 08/26/19 21:25 39M with a PMH of depression, anxiety, polysubstance abuse (injects heroine and snorts cocaine) who presents to the ER from [facility] for agitation. Pt noted to be in bed and does not want to provide history but relaxes when provided food. Will medically clear and send to detox. Currently on 1:1. Received 1mg ativan by prior provider. 08/27/19 07:01 D/c 1:1. PROPERTY MANAGEMENT ASSISTANT Sudheer at [facility] aware of pt coming and states they have male beds available. Pt signed out to Dr. Burnett. Discharge - Discharge Information Problems reviewed: Yes Clinical Impression/Diagnosis: Substance abuse Condition: Stable Disposition: HOME - Admission No - Follow up/Referral - Patient Discharge Instructions Patient Printed Discharge Instructions: Getting Treatment for Drug Addiction Additional Instructions: You were seen in the Emergency Department. You are continuing on to [facility] where there is a bed available for you. Continue your home medications as prescribed. Follow up with your Primary Care Doctor regarding this ED visit in the next 7 days. IMMEDIATELY RETURN TO THE NEAREST EMERGENCY DEPARTMENT IF YOU EXPERIENCE WORSENING, NEW, OR CONCERNING SYMPTOMS. - Post Discharge Activity
[2019-08-26 22:23] LABS: BASO % 0.6 % (0-2.0); EOS % 5.9 % (0-4.5); HEMATOCRIT 38.1 % (35.4-49); HEMOGLOBIN 12.4 GM/dL (11.7-16.9); LYMPH % 31.5 % (8-40); MCH 27.3 pg (25.7-33.7); MCHC 32.5 g/dl (32.0-35.9); MEAN PLT VOLUME 8.2 fl (7.5-11.1); MONO % 14.8 % (3.8-10.2); NEUT % 47.2 % (42.8-82.8); PLATELET COUNT 304 K/MM3 (134-434); RBC 4.54 M/mm3 (4.00-5.60); RDW 15.8 % (11.9-15.9); WHITE BLOOD COUNT 5.9 K/mm3 (4.0-10.0)
[2019-08-26 22:51] LABS: ALBUMIN 3.6 g/dl (3.4-5.0); BILIRUBIN,TOTAL 0.4 mg/dL (0.2-1); BLOOD UREA NITROGEN 18.1 mg/dL (7-18); CALCIUM 8.9 mg/dL (8.5-10.1); CREATININE 1.2 mg/dL (0.55-1.3); POTASSIUM 3.9 mmol/L (3.5-5.1); TOT PROT 6.7 g/dl (6.4-8.2)
--- NOTE | 2019-08-27 07:09 | PDOC ---
*Physical Exam - Vital Signs Last Vital Signs Temp Pulse Resp BP Pulse Ox 98.3 F 66 16 126/88 99 08/26/19 18:35 08/27/19 06:59 08/27/19 06:59 08/27/19 06:59 08/27/19 06:59 ED Treatment Course - LABORATORY CBC & Chemistry Diagram: 08/26/19 21:58 08/26/19 21:58 - ADDITIONAL ORDERS Additional order review: Laboratory Results 08/26/19 08/26/19 21:58 21:58 Sodium 137 Potassium 3.9 Chloride 100 Carbon Dioxide 31 Anion Gap 6 L BUN 18.1 H Creatinine 1.2 Est GFR (CKD-EPI)AfAm 86.53 Est GFR (CKD-EPI)NonAf 74.66 Random Glucose 92 Calcium 8.9 Total Bilirubin 0.4 AST 186 H ALT 224 H Alkaline Phosphatase 109 Creatine Kinase 606 H Creatine Kinase Index 1.0 CK-MB (CK-2) 6.4 H Troponin I < 0.02 Total Protein 6.7 Albumin 3.6 08/26/19 21:58 RBC 4.54 MCV 84.0 MCHC 32.5 RDW 15.8 MPV 8.2 Neutrophils % 47.2 Lymphocytes % 31.5 Monocytes % 14.8 H Eosinophils % 5.9 H Basophils % 0.6 - Medications Given in the ED: ED Medications Discontinued Medications Generic Name Dose Route Start Last Admin Trade Name Kalyani PRN Reason Stop Dose Admin Lorazepam 1 mg 08/26/19 18:52 08/26/19 19:05 Ativan Injection - IM 08/26/19 18:53 1 mg ONCE ONE Administration Medical Decision Making - Medical Decision Making 08/27/19 07:08 received sign out from PM team - reassess - dc [facility] 8am 08/27/19 08:00 pt awake and alert asking for food ready for DC as above Discharge - Discharge Information Problems reviewed: Yes Clinical Impression/Diagnosis: Substance abuse Condition: Stable Disposition: HOME - Admission No - Follow up/Referral - Patient Discharge Instructions Patient Printed Discharge Instructions: Getting Treatment for Drug Addiction Additional Instructions: You were seen in the Emergency Department. You are continuing on to [facility] where there is a bed available for you. Continue your home medications as prescribed. Follow up with your Primary Care Doctor regarding this ED visit in the next 7 days. IMMEDIATELY RETURN TO THE NEAREST EMERGENCY DEPARTMENT IF YOU EXPERIENCE WORSENING, NEW, OR CONCERNING SYMPTOMS. - Post Discharge Activity
[2019-08-27 09:21] VITALS: BP 125/83; PULSE 72; TEMP 98.1
--- NOTE | 2019-08-27 10:47 | EKG ---
Test Reason : Blood Pressure : / mmHG Vent. Rate : 080 BPM Atrial Rate : 080 BPM P-R Int : 140 ms QRS Dur : 088 ms QT Int : 404 ms P-R-T Axes : 040 057 001 degrees QTc Int : 465 ms NORMAL SINUS RHYTHM NONSPECIFIC T WAVE ABNORMALITY PROLONGED QT ABNORMAL ECG WHEN COMPARED WITH ECG OF 03-MAY-2019 19:33, VENT. RATE HAS INCREASED BY 33 BPM Confirmed by HENNA LUNA, CARLOS ([id number]) on 08/27/2019 10:46:47 AM Referred By: Confirmed By:CARLOS AGUILLON MD
== END 2019-08-27 09:15 | disposition home or self-care (01) ==
LOC: JER 18:31
PROC: 3E023NZ Introduction of Analgesics, Hypnotics, Sedatives into Muscle, Percutaneous Approach (ICD-10-PCS; principal; 2019-08-26)
DX: F19.10 Other psychoactive substance abuse, uncomplicated (principal); F11.10 Opioid abuse, uncomplicated; F14.10 Cocaine abuse, uncomplicated; F17.210 Nicotine dependence, cigarettes, uncomplicated
CPT/HCPCS: 36415; 80053; 82550; 82553; 84484; 85025; 93005; 93010; 99283-25

== ENCOUNTER 2020-11-29 16:40 | Inpatient (IN) | payer OTHER ==
[2020-11-29 19:20] VITALS: BMI 27.8
[2020-11-29] MEDS ORDERED: IBUPROFEN 400 MG TABLET (FP) PO PRN (22:01)
[2020-11-29] MEDS ORDERED: METHOCARBAMOL 500 MG TABLET PO PRN (22:01)
[2020-11-29] MEDS ORDERED: MENTHOL/PHENOL 1 EACH UD MM PRN (22:01)
[2020-11-29] MEDS ORDERED: MAGNESIUM HYDROX 2400MG/30ML ORAL SUSPENSION 30 ML CUP PO PRN (22:01)
[2020-11-29] MEDS ORDERED: MAG HYDROX/AL HYDROX/SIMETH 30 ML UNIT-DOSE CUP PO PRN (22:01)
[2020-11-29] MEDS ORDERED: MAGNESIUM CITRATE 300 ML BOTTLE PO PRN (22:01)
[2020-11-29] MEDS ORDERED: BISMUTH SUBSALICYLATE 524 MG/30 ML UD PO PRN (22:01)
[2020-11-29] MEDS ORDERED: ACETAMINOPHEN 325 MG TABLET (FP) PO PRN ×2 (22:01)
[2020-11-29] MEDS ORDERED: cloNIDine HCL 0.1 MG TABLET PO PRN (22:03)
[2020-11-29] MEDS ORDERED: METHADONE HCL 10 MG TABLET (FOR DETOX USE ONLY) PO ONE (23:00)
[2020-11-30] MEDS ORDERED: METHADONE HCL 10 MG TABLET (FOR DETOX USE ONLY) PO ONE (03:12)
[2020-11-30] MEDS ORDERED: METHADONE (DETOX) 20 MG, METHADONE (DETOX) 5 MG PO ONE (10:00)
[2020-11-30] MEDS: PRENATAL VITAMINS W/ FOLIC ACID TABLET (FP) PO SCH (10:22)
[2020-11-30 10:37] LABS: POTASSIUM 4.1 mmol/L (3.5-5.1)
[2020-11-30 10:38] LABS: HEMATOCRIT 34.4 % (35.4-49); HEMOGLOBIN 11.4 GM/dL (11.7-16.9); MCH 26.8 pg (25.7-33.7); PLATELET COUNT 263 K/MM3 (134-434); RBC 4.24 M/mm3 (4.00-5.60); RDW 14.4 % (11.9-15.9); WHITE BLOOD COUNT 4.3 K/mm3 (4.0-10.0)
[2020-11-30 10:43] LABS: CALCIUM 8.6 mg/dL (8.5-10.1)
[2020-11-30 10:44] LABS: ALBUMIN 3.3 g/dl (3.4-5.0); BLOOD UREA NITROGEN 13.5 mg/dL (7-18)
[2020-11-30 10:49] LABS: BILIRUBIN,TOTAL 0.7 mg/dL (0.2-1); TOT PROT 6.9 g/dl (6.4-8.2)
[2020-11-30] MEDS ORDERED: MELATONIN 5 MG TABLETS PO SCH (22:00)
[2020-11-30] MEDS ORDERED: MIRTAZAPINE 15 MG TABLET (FP) PO SCH (22:00)
[2020-11-30] MEDS ORDERED: THIAMINE HCL 100 MG TABLET (FP) PO SCH (22:00)
[2020-12-01 08:58] VITALS: BP 103/64
[2020-12-01] MEDS ORDERED: METHADONE HCL 5 MG TABLET (FOR DETOX USE ONLY) ONE (09:35)
[2020-12-01] MEDS ORDERED: METHADONE HCL 10 MG TABLET (FOR DETOX USE ONLY) ONE (09:35)
[2020-12-01] MEDS ORDERED: METHADONE (DETOX) 20 MG, METHADONE (DETOX) 5 MG PO ONE (10:00)
[2020-12-01] MEDS ORDERED: METHADONE HCL 10 MG TABLET (FOR DETOX USE ONLY) PO ONE (10:00)
[2020-12-01] MEDS: PRENATAL VITAMINS W/ FOLIC ACID TABLET (FP) PO SCH (10:22)
[2020-12-01 13:28] VITALS: PULSE 16; TEMP 97.3
[2020-12-02] MEDS ORDERED: METHADONE (DETOX) 10 MG, METHADONE (DETOX) 5 MG PO ONE (10:00)
[2020-12-02] MEDS ORDERED: METHADONE HCL 10 MG TABLET (FOR DETOX USE ONLY) PO ONE (10:00)
[2020-12-03] MEDS ORDERED: METHADONE HCL 10 MG TABLET (FOR DETOX USE ONLY) PO ONE (10:00)
[2020-12-03] MEDS ORDERED: METHADONE (DETOX) 10 MG, METHADONE (DETOX) 5 MG PO ONE (10:00)
[2020-12-04] MEDS ORDERED: METHADONE HCL 5 MG TABLET (FOR DETOX USE ONLY) PO ONE (06:00)
[2020-12-04] MEDS ORDERED: METHADONE HCL 10 MG TABLET (FOR DETOX USE ONLY) PO ONE (10:00)
[2020-12-05] MEDS ORDERED: METHADONE HCL 5 MG TABLET (FOR DETOX USE ONLY) PO ONE (06:00)
== END 2020-12-01 02:38 | disposition left against medical advice (07) | DRG 770 ==
LOC: YASAS 16:40 → Y3N 22:27
PROVIDERS: ADMIT Allergy & Immunology; ATTEND Allergy & Immunology
PROC: HZ2ZZZZ Detoxification Services for Substance Abuse Treatment (ICD-10-PCS; principal; 2020-11-29)
DX: F11.23 Opioid dependence with withdrawal (principal); F14.20 Cocaine dependence, uncomplicated; F17.210 Nicotine dependence, cigarettes, uncomplicated; F19.282 Other psychoactive substance dependence with psychoactive substance-induced sleep disorder; F19.280 Other psychoactive substance dependence with psychoactive substance-induced anxiety disorder; F19.24 Other psychoactive substance dependence with psychoactive substance-induced mood disorder; F41.9 Anxiety disorder, unspecified; F43.10 Post-traumatic stress disorder, unspecified; F32.9 Major depressive disorder, single episode, unspecified; M54.5 Low back pain; G89.29 Other chronic pain; G47.00 Insomnia, unspecified; Z91.19 Patient's noncompliance with other medical treatment and regimen
CPT/HCPCS: 36415; 80053; 85027; 86780; 93005; 93010; C9803; J0735; U0003

== ENCOUNTER 2023-09-04 19:21 | Inpatient (IN) | payer OTHER ==
[2023-09-04 20:11] VITALS: BMI 27.8
[2023-09-04] MEDS ORDERED: LOPERAMIDE HCL 2 MG CAPSULE PO PRN (20:47)
[2023-09-04] MEDS ORDERED: NALOXONE HCL 0.4 MG/ML VIAL IM PRN (20:47)
[2023-09-04] MEDS ORDERED: NICOTINE POLACRILEX 2 MG GUM BUC PRN (20:47)
[2023-09-04] MEDS ORDERED: DICYCLOMINE HCL 10 MG CAPSULE PO PRN (20:47)
[2023-09-04] MEDS ORDERED: IBUPROFEN 400 MG TABLET (FP) PO PRN (20:47)
[2023-09-04] MEDS ORDERED: NALOXONE HCL (KLOXXADO) 8 MG SPRAY NS PRN (20:47)
[2023-09-04] MEDS ORDERED: MAGNESIUM HYDROX 2400MG/30ML ORAL SUSPENSION 30 ML CUP PO PRN (20:47)
[2023-09-04] MEDS ORDERED: ONDANSETRON *ODT* 4 MG TABLET SL PRN (20:47)
[2023-09-04] MEDS ORDERED: BISMUTH SUBSALICYLATE 524 MG/30 ML PO PRN (20:47)
[2023-09-04] MEDS ORDERED: ACETAMINOPHEN 325 MG TABLET (FP) PO PRN (20:47)
[2023-09-04] MEDS ORDERED: guaiFENesin 600 MG TABLET.ER (FP) PO PRN (20:47)
[2023-09-04] MEDS ORDERED: BENZOCAINE/MENTHOL (CHLORASEPTIC ) LOZENGE MM PRN (20:47)
[2023-09-04] MEDS ORDERED: POLYETHYLENE GLYCOL (HEALTHYLAX) 3350 17 GM PACKET PO PRN (20:47)
[2023-09-04] MEDS ORDERED: BENZONATATE 200 MG CAPSULE PO PRN (20:47)
[2023-09-04] MEDS ORDERED: MAG HYDROX/AL HYDROX/SIMETH 30 ML UNIT-DOSE CUP PO PRN (20:47)
[2023-09-04] MEDS: MELATONIN 5 MG TABLETS PO SCH (22:50)
[2023-09-04] MEDS: THIAMINE HCL 100 MG TABLET (FP) PO SCH (22:50)
[2023-09-05] MEDS ORDERED: diazePAM 5 MG TABLET PO PRN (09:25)
[2023-09-05] MEDS ORDERED: methaDONE HCL 10 MG TABLET (FOR DETOX USE ONLY) PO ONE (09:25)
[2023-09-05] MEDS ORDERED: cloNIDine HCL 0.1 MG TABLET PO PRN (09:25)
[2023-09-05] MEDS: NICOTINE 14 MG/24 HOURS TOPICAL PATCH TD SCH (10:36)
[2023-09-05] MEDS: PRENATAL VITAMINS W/ FOLIC ACID TABLET (FP) PO SCH (10:36)
[2023-09-05] MEDS: diazePAM 5 MG TABLET PO SCH ×3 (10:37→22:49)
[2023-09-05 11:43] LABS: HEMATOCRIT 33.2 % (35.4-49); MCHC 33.2 g/dl (32.0-35.9); MEAN CELL VOLUME 78.4 fl (80-96); MEAN PLT VOLUME 8.6 fl (7.5-11.1); PLATELET COUNT 279 10^3/uL (134-434); RBC 4.23 M/mm3 (4.00-5.60); RDW 15.2 % (11.9-15.9); WHITE BLOOD COUNT 6.1 K/mm3 (4.0-10.0)
[2023-09-05] MEDS: MELATONIN 5 MG TABLETS PO SCH (22:45)
[2023-09-05] MEDS: IBUPROFEN 600 MG TABLET (FP) PO PRN (22:45)
[2023-09-05] MEDS: THIAMINE HCL 100 MG TABLET (FP) PO SCH (22:45)
[2023-09-06] MEDS: diazePAM 5 MG TABLET PO SCH ×4 (05:35→22:10)
[2023-09-06 08:09] LABS: CHLORIDE 104 mmol/L (98-107); SODIUM 140 mmol/L (136-145)
[2023-09-06 08:11] LABS: ALBUMIN 3.4 g/dl (3.4-5.0); CALCIUM 8.3 mg/dL (8.5-10.1)
[2023-09-06 08:12] LABS: ANION GAP 7 mmol/L (4-13); BLOOD UREA NITROGEN 8.7 mg/dL (7-18); CO2 29 mmol/L (21-32); GLUCOSE,RANDOM 105 mg/dL (74-106)
[2023-09-06 08:14] LABS: CREATININE 0.8 mg/dL (0.55-1.3)
[2023-09-06 08:15] LABS: BILIRUBIN,TOTAL 0.3 mg/dL (0.2-1); SGOT/AST 11 U/L (15-37); SGPT/ALT 19 U/L (13-61); TOT PROT 6.4 g/dl (6.4-8.2)
[2023-09-06 08:17] LABS: ALK PHOS 62 U/L (45-117)
[2023-09-06] MEDS: PRENATAL VITAMINS W/ FOLIC ACID TABLET (FP) PO SCH (10:02)
[2023-09-06] MEDS: NICOTINE 14 MG/24 HOURS TOPICAL PATCH TD SCH (10:03)
[2023-09-06 20:42] VITALS: RESP 18
[2023-09-06] MEDS: MELATONIN 5 MG TABLETS PO SCH (22:10)
[2023-09-06] MEDS: THIAMINE HCL 100 MG TABLET (FP) PO SCH (22:10)
[2023-09-07] MEDS ORDERED: diazePAM 5 MG TABLET PO SCH (06:00)
[2023-09-07 06:18] VITALS: TEMP 97.8
[2023-09-07] MEDS: IBUPROFEN 600 MG TABLET (FP) PO PRN (09:15)
[2023-09-07] MEDS ORDERED: METHOCARBAMOL 500 MG TABLET PO PRN (09:22)
[2023-09-07 09:38] VITALS: BP 123/80; PULSE 70
[2023-09-07] MEDS ORDERED: HYDROCORTISONE 1% TOPICAL CREAM 30 GM TUBE TP SCH (10:00)
[2023-09-07] MEDS ORDERED: methaDONE HCL 10 MG TABLET (FOR DETOX USE ONLY) PO ONE (10:00)
[2023-09-07] MEDS: PRENATAL VITAMINS W/ FOLIC ACID TABLET (FP) PO SCH (10:22)
[2023-09-07] MEDS: NICOTINE 14 MG/24 HOURS TOPICAL PATCH TD SCH (10:47)
[2023-09-08] MEDS ORDERED: diazePAM 5 MG TABLET PO SCH (06:00)
[2023-09-09] MEDS ORDERED: diazePAM 5 MG TABLET PO ONE (06:00)
[2023-09-09] MEDS ORDERED: methaDONE HCL 10 MG TABLET (FOR DETOX USE ONLY) PO ONE (10:00)
== END 2023-09-07 13:12 | disposition left against medical advice (07) | DRG 770 ==
LOC: YASAS 19:21 → Y3N 21:25
PROVIDERS: ADMIT Allergy & Immunology; ATTEND Surgery
PROC: HZ2ZZZZ Detoxification Services for Substance Abuse Treatment (ICD-10-PCS; principal; 2023-09-04)
DX: F11.23 Opioid dependence with withdrawal (principal); F10.230 Alcohol dependence with withdrawal, uncomplicated; F14.20 Cocaine dependence, uncomplicated; F17.210 Nicotine dependence, cigarettes, uncomplicated; F19.24 Other psychoactive substance dependence with psychoactive substance-induced mood disorder; E78.5 Hyperlipidemia, unspecified; M54.50 Low back pain, unspecified; G89.29 Other chronic pain; Z86.11 Personal history of tuberculosis; Z86.19 Personal history of other infectious and parasitic diseases; Z56.0 Unemployment, unspecified; Z59.00 Homelessness unspecified; S82.891D Other fracture of right lower leg, subsequent encounter for closed fracture with routine healing; X58.XXXD Exposure to other specified factors, subsequent encounter
CPT/HCPCS: 36415; 71046-TC-FY; 80053; 80307; 85027; 86780; 87635; 93005; 93010